=== PATIENT | female | born 1975 | race Two or more races ===

== ENCOUNTER 2018-01-01 10:21 | Outpatient (CLI) | payer OTHER ==
[~2018-01-01 10:21] MED LIST: ALEVE220 M1 PO; ASA-EC81 MG PO; COUMADIN5 MG PO; XARELTO20 MG; XARELTO20 MG PO
== END 2018-01-01 10:35 | disposition home or self-care (01) ==
LOC: SONOGRAMA 10:21
DX: E04.1 Nontoxic single thyroid nodule (principal)

== ENCOUNTER 2018-01-07 09:09 | Outpatient (CLI) | payer OTHER | END 2018-01-07 09:23 | disposition home or self-care (01) | LOC: LAB 09:09 | DX: R19.5 Other fecal abnormalities (principal); E78.2 Mixed hyperlipidemia; R63.5 Abnormal weight gain; E16.2 Hypoglycemia, unspecified; E88.9 Metabolic disorder, unspecified; R53.81 Other malaise; R43.0 Anosmia; R30.0 Dysuria; E55.9 Vitamin D deficiency, unspecified; R80.8 Other proteinuria; Z12.11 Encounter for screening for malignant neoplasm of colon; E04.0 Nontoxic diffuse goiter ==

== ENCOUNTER 2018-01-07 09:35 | Outpatient (CLI) | payer OTHER | END 2018-01-07 09:52 | disposition home or self-care (01) | LOC: SONOGRAMA 09:35 | DX: R10.2 Pelvic and perineal pain (principal); R10.84 Generalized abdominal pain; K76.0 Fatty (change of) liver, not elsewhere classified ==

== ENCOUNTER 2018-01-08 08:56 | Outpatient (CLI) | payer OTHER | END 2018-01-08 09:15 | disposition home or self-care (01) | LOC: RAD 08:56 → TOM 10:15 | DX: R41.2 Retrograde amnesia (principal); R51 Headache; N60.11 Diffuse cystic mastopathy of right breast; N60.12 Diffuse cystic mastopathy of left breast; N60.02 Solitary cyst of left breast ==

== ENCOUNTER 2018-01-08 11:59 | Outpatient (CLI) | payer OTHER | END 2018-01-08 18:28 | disposition home or self-care (01) | LOC: NUCLEAR 11:59 | DX: I80.3 Phlebitis and thrombophlebitis of lower extremities, unspecified (principal) ==

== ENCOUNTER 2018-01-14 09:21 | Outpatient (CLI) | payer OTHER | END 2018-01-14 09:28 | disposition home or self-care (01) | LOC: RAD 09:21 | DX: J20.8 Acute bronchitis due to other specified organisms (principal) ==

== ENCOUNTER 2018-04-15 09:41 | Outpatient (CLI) | payer OTHER | END 2018-04-15 09:56 | disposition home or self-care (01) | LOC: LAB 09:41 | DX: D50.8 Other iron deficiency anemias (principal) ==

== ENCOUNTER 2018-09-22 10:01 | Outpatient (CLI) | payer OTHER | END 2018-09-22 10:10 | disposition home or self-care (01) | LOC: LAB 10:01 | DX: E78.2 Mixed hyperlipidemia (principal); R19.5 Other fecal abnormalities; R63.5 Abnormal weight gain; E88.89 Other specified metabolic disorders; R53.81 Other malaise; R43.0 Anosmia; R30.0 Dysuria; E55.9 Vitamin D deficiency, unspecified; D50.8 Other iron deficiency anemias; E04.0 Nontoxic diffuse goiter; E16.1 Other hypoglycemia ==

== ENCOUNTER 2018-09-23 15:40 | Emergency (ER) | payer OTHER ==
[~2018-09-23] VITALS: Ht 172.7 cm; Wt 104.3 kg
== END 2018-09-24 16:07 | disposition home or self-care (01) ==
LOC: ER 15:40
DX: D64.9 Anemia, unspecified (principal); N93.8 Other specified abnormal uterine and vaginal bleeding; D51.8 Other vitamin B12 deficiency anemias; Z98.84 Bariatric surgery status; Z98.890 Other specified postprocedural states; D50.8 Other iron deficiency anemias
CPT/HCPCS: 93005; 36430 ×2; 86904 ×2; 86922 ×2; P9021 ×2

== ENCOUNTER 2018-12-01 12:33 | Emergency (ER) | payer OTHER ==
[~2018-12-01] VITALS: Ht 172.7 cm; Wt 104.3 kg
[2018-12-01] MEDS ORDERED: ADIPEX-P37.5 M1 (12:42)
== END 2018-12-01 17:26 | disposition home or self-care (01) ==
LOC: ER 12:33
DX: R20.0 Anesthesia of skin (principal)

== ENCOUNTER 2019-06-26 14:45 | Inpatient (IN) | payer OTHER ==
[~2019-06-26] VITALS: Ht 172.7 cm; Wt 99.8 kg
[~2019-06-26 14:45] MED LIST changes: +ADIPEX-P37.5 M1
--- NOTE | 2019-06-26 15:27 | NUR ---
PACIENTE FEMINA ALERTA Y ORIENTADA CON SANGRADO VAGINAL ACTIVO DESDE HACE UN AC. EL MISMO WOMACK ESTADO PREVIAMENTE EN EL HOSPITAL Y LA [facility] TENIDO QUE TRANSFUNFIR EN 4 OCACIONES. ACTUALMENTE ESTA EN RODRIGUEZ PERIODO MESTRUAL Y ES PACIENTE ANEMICO.
--- NOTE | 2019-06-26 17:09 | NUR ---
PTE ES EVALUADA POR DR. GUYA QUIEN ORDENA TRATAMIENTO. SE EDUCA A PTE SOBRE ORDENES MEDICAS Y REFIERE COMPRENDER. SE CANALIZA Y SE COLECTAN MUESTRAS DE LABORATORIO BAJO MEDIDAS ASEPTICAS Y SE MANTIENE CON IV FLUIDS.
--- NOTE | 2019-06-26 23:19 | NUR ---
SE RECIBE PACIENTE EN CAMA CON MEDIDAS DE SEGURIDAD LUCE ALERTA CONSCIENTE Y ORIENTADA X3 EN COMPANIA DE FAMILIAR. BUEN PATRON RESPIRATORIO. IV. PATENTE AREA JAZMIN DE EDEMA Y ENROJECIMIENTO. PTE REFIERE YA NO TENER UN SANGRADO PROFUSO VAGINAL. PTE EN ESPERA DE SER RE EVLAUADA POR EL DR. FRIEDMAN EN LA MANANA.
--- NOTE | 2019-06-27 07:28 | NUR ---
SE RECIBE PT ALERTA Y ORIENTADA EN TIEMPO LUGAR Y PERSONA, EN CAMA CON BARANDAS ELEVADAS Y TIMBRE ACCESIBLE. PT RECIBIENDO 0.9NSS BAJANDO A 150ML/HR. AL MOMENTO PENDIENTE DE SER EVALUADA POR DR FRIEDMAN.SE MANTIENE CON 2 U PRBC EN HOLD.
--- NOTE | 2019-06-27 09:44 | NUR ---
SE ASISTE A DR FRIEDMAN EN EXAMEN VAGINAL.
== END 2019-06-28 12:33 | DRG 812 ==
LOC: ER 14:45 → OB/GYN 06-27 10:05
PROVIDERS: ADMIT Obstetrics & Gynecology
PROC: 30233N1 Transfusion of Nonautologous Red Blood Cells into Peripheral Vein, Percutaneous Approach (ICD-10-PCS; principal; 2019-06-27)
DX: D50.0 Iron deficiency anemia secondary to blood loss (chronic) (principal); E72.12 Methylenetetrahydrofolate reductase deficiency; D68.61 Antiphospholipid syndrome; N93.8 Other specified abnormal uterine and vaginal bleeding; Z98.84 Bariatric surgery status; Z95.828 Presence of other vascular implants and grafts; D25.1 Intramural leiomyoma of uterus

== ENCOUNTER 2020-02-06 10:29 | Emergency (ER) | payer OTHER ==
[~2020-02-06] VITALS: Ht 172.7 cm; Wt 104.3 kg
[2020-02-06] MEDS ORDERED: XARELTO20 MG (11:04)
== END 2020-02-06 14:09 | disposition home or self-care (01) ==
LOC: ER 10:29
DX: M62.830 Muscle spasm of back (principal)

== ENCOUNTER 2020-02-07 12:28 | Outpatient (CLI) | payer OTHER | END 2020-02-07 12:35 | disposition home or self-care (01) | LOC: LAB 12:28 | PROVIDERS: ATTEND Internal Medicine Hematology & Oncology | DX: D50.8 Other iron deficiency anemias (principal); I10 Essential (primary) hypertension; E72.11 Homocystinuria; E72.12 Methylenetetrahydrofolate reductase deficiency; I80.222 Phlebitis and thrombophlebitis of left popliteal vein; D51.1 Vitamin B12 deficiency anemia due to selective vitamin B12 malabsorption with proteinuria; D50.0 Iron deficiency anemia secondary to blood loss (chronic); Z98.84 Bariatric surgery status ==

== ENCOUNTER 2020-02-15 09:53 | Outpatient (CLI) | payer OTHER | END 2020-02-15 10:19 | disposition home or self-care (01) | LOC: NUCLEAR 09:53 | PROVIDERS: ATTEND Internal Medicine Hematology & Oncology | DX: I80.222 Phlebitis and thrombophlebitis of left popliteal vein (principal) ==

== ENCOUNTER 2020-02-15 12:43 | Outpatient (CLI) | payer OTHER | END 2020-02-15 12:46 | disposition home or self-care (01) | LOC: MAMO-SONO 12:43 | PROVIDERS: ATTEND Internal Medicine Hematology & Oncology | DX: Z12.31 Encounter for screening mammogram for malignant neoplasm of breast (principal); N63.10 Unspecified lump in the right breast, unspecified quadrant; N63.20 Unspecified lump in the left breast, unspecified quadrant; E72.12 Methylenetetrahydrofolate reductase deficiency; D68.59 Other primary thrombophilia; I80.222 Phlebitis and thrombophlebitis of left popliteal vein; D51.1 Vitamin B12 deficiency anemia due to selective vitamin B12 malabsorption with proteinuria; D50.0 Iron deficiency anemia secondary to blood loss (chronic); D50.8 Other iron deficiency anemias; Z98.84 Bariatric surgery status; E04.2 Nontoxic multinodular goiter ==

== ENCOUNTER 2021-09-03 09:21 | Inpatient (IN) | payer OTHER ==
[~2021-09-03] VITALS: Ht 172.7 cm; Wt 104.3 kg
[2021-09-03] MEDS ORDERED: FUSION PLUS CA1 EACH PO (09:47)
[2021-09-04] MEDS ORDERED: FOLIC ACID1 MG (08:23)
== END 2021-09-07 14:36 | disposition home or self-care (01) | DRG 812 ==
LOC: ER 09:21 → OB/GYN 20:45
PROVIDERS: ADMIT Obstetrics & Gynecology; ATTEND Obstetrics & Gynecology
PROC: 30233N1 Transfusion of Nonautologous Red Blood Cells into Peripheral Vein, Percutaneous Approach (ICD-10-PCS; principal; 2021-09-03)
PROC: BU4CZZZ Ultrasonography of Uterus and Ovaries (ICD-10-PCS; 2021-09-03)
DX: D50.0 Iron deficiency anemia secondary to blood loss (chronic) (principal); Z20.822 Contact with and (suspected) exposure to COVID-19; Z98.84 Bariatric surgery status; Z90.49 Acquired absence of other specified parts of digestive tract; Z86.718 Personal history of other venous thrombosis and embolism; N93.8 Other specified abnormal uterine and vaginal bleeding

== ENCOUNTER 2021-09-08 23:27 | Inpatient (IN) | payer OTHER ==
[~2021-09-08] VITALS: Ht 172.7 cm; Wt 108.0 kg
[~2021-09-08 23:27] MED LIST changes: +FOLIC ACID1 MG; +FUSION PLUS CA1 EACH PO
--- NOTE | 2021-09-08 23:41 | NUR ---
PACIENTE ALERTA Y ORIENTADA REFIERE QUE ESTUBO RECLUIDA AQUI POR 8 BENDER POR ANEMIA, REFIERE QUE FUE POLY DE KAMERON EL VIERNES CONM HEMOGLOBINA EN 7.3, PACIENTE REFIERE QUE SIGUE CON SANGRADO Y MAREOS. SE MONITOREAN S/V Y SE UBICA EN OBSERVACION.
--- NOTE | 2021-09-09 01:01 | NUR ---
SE ORIENTA AL PACIENTE SOBRE EL TX. SE EXTRAEN MUESTRAS DE LEWIS BAJO MEDIDAS ASEPTICAS SE ROTULAN Y ENVIAN AL LABORATORIO. SE CANALIZA Y COLOCA 2 H/L. SE IRENE PERMISO PARA TRANSFUNDIR Y SE ALOK PILOTOS PARA 2 UNIDADES DE PRBC. SE LLAMA A BANCO DE [employer]IC[employer]OS [employer] Y SE NOTIFICA.
--- NOTE | 2021-09-09 08:25 | NUR ---
SE EVALUA PTEPOR EL SANG LARA EN AREA DE OBGYN LA CUAL SE OBSERVA SANGRADO PROFUSO. LA PTE SE ADMITIRA BAJO LOS SERVICIO DEL DEWAYNE LARA . SE MANTIENE BAJO OBSERVACION.
--- NOTE | 2021-09-09 08:45 | NUR ---
8:40AM: SE HABLA CON MS MOON Y SE LE INDICA QUE SE GALINA EN BANCO DE LEWIS LA LA REQUISICION DE LAS PLAQUETAS.
== END 2021-09-13 15:35 | disposition home or self-care (01) | DRG 811 ==
LOC: ER 23:27 → MEDJ 09-09 07:50 → OB/GYN 09-09 07:50 → MEDJ 09-09 11:14
PROVIDERS: ADMIT Obstetrics & Gynecology; ATTEND Obstetrics & Gynecology
PROC: 30233N1 Transfusion of Nonautologous Red Blood Cells into Peripheral Vein, Percutaneous Approach (ICD-10-PCS; principal; 2021-09-09)
PROC: 30233R1 Transfusion of Nonautologous Platelets into Peripheral Vein, Percutaneous Approach (ICD-10-PCS; 2021-09-09)
PROC: BU4CZZZ Ultrasonography of Uterus and Ovaries (ICD-10-PCS; 2021-09-09)
PROC: 079T3ZX Drainage of Bone Marrow, Percutaneous Approach, Diagnostic (ICD-10-PCS; 2021-09-12)
PROC: 07DR0ZX Extraction of Iliac Bone Marrow, Open Approach, Diagnostic (ICD-10-PCS; 2021-09-12)
DX: D50.0 Iron deficiency anemia secondary to blood loss (chronic) (principal); U07.1 COVID-19; D68.61 Antiphospholipid syndrome; E72.12 Methylenetetrahydrofolate reductase deficiency; D69.49 Other primary thrombocytopenia; Z86.718 Personal history of other venous thrombosis and embolism

== ENCOUNTER 2021-11-06 11:40 | Outpatient (CLI) | payer OTHER | END 2021-11-06 11:42 | disposition home or self-care (01) | LOC: LAB 11:40 | DX: Z01.812 Encounter for preprocedural laboratory examination (principal) ==

== ENCOUNTER 2021-11-14 12:52 | Outpatient (CLI) | payer OTHER | END 2021-11-14 13:03 | disposition home or self-care (01) | LOC: MAMO-SONO 12:52 | PROVIDERS: ATTEND Internal Medicine | DX: E04.1 Nontoxic single thyroid nodule (principal); N60.11 Diffuse cystic mastopathy of right breast; N60.12 Diffuse cystic mastopathy of left breast ==

== ENCOUNTER 2022-07-10 10:44 | Outpatient (CLI) | payer OTHER | END 2022-07-10 10:59 | disposition home or self-care (01) | LOC: NUCLEAR 10:44 | PROVIDERS: ATTEND Internal Medicine Hematology & Oncology | DX: I87.2 Venous insufficiency (chronic) (peripheral) (principal); Z86.718 Personal history of other venous thrombosis and embolism ==

== ENCOUNTER 2022-07-16 09:29 | Outpatient (CLI) | payer OTHER | END 2022-07-16 10:02 | disposition home or self-care (01) | LOC: SONOGRAMA 09:29 | PROVIDERS: ATTEND Internal Medicine Hematology & Oncology | DX: N93.9 Abnormal uterine and vaginal bleeding, unspecified (principal) ==

== ENCOUNTER 2022-10-01 09:56 | Outpatient (CLI) | payer OTHER | END 2022-10-01 10:03 | disposition home or self-care (01) | LOC: RAD 09:56 | PROVIDERS: ATTEND Obstetrics & Gynecology Gynecology | DX: I10 Essential (primary) hypertension (principal) ==

== ENCOUNTER 2022-10-15 12:46 | Inpatient (IN) | payer OTHER ==
[~2022-10-15] VITALS: Ht 172.7 cm; Wt 121.6 kg
[2022-10-22] MEDS ORDERED: ESCITALOPRAM OX10 MG (08:17)
[2022-10-23] MEDS ORDERED: ACETAMINOPHEN-1 EAC2 PO (07:09)
[2022-10-23] MEDS ORDERED: LOVENOX40 MG/0.4 SUBCUTANEO (07:10)
== END 2022-10-23 09:16 | disposition home or self-care (01) | DRG 742 ==
LOC: SURH 10-21 07:00 → O/R 10-21 11:43 → SURH 10-21 15:45 → OB/GYN 10-21 18:18
PROVIDERS: ADMIT Obstetrics & Gynecology Gynecology; ATTEND Obstetrics & Gynecology Gynecology
PROC: 0UT70ZZ Resection of Bilateral Fallopian Tubes, Open Approach (ICD-10-PCS; 2022-10-21)
PROC: 0UT90ZZ Resection of Uterus, Open Approach (ICD-10-PCS; principal; 2022-10-21 15:45)
DX: D25.1 Intramural leiomyoma of uterus (principal); E72.11 Homocystinuria; E72.12 Methylenetetrahydrofolate reductase deficiency; D25.2 Subserosal leiomyoma of uterus; N80.03 Adenomyosis of the uterus; Z20.822 Contact with and (suspected) exposure to COVID-19; D69.6 Thrombocytopenia, unspecified

== ENCOUNTER 2023-07-23 15:26 | Outpatient (CLI) | payer OTHER ==
[~2023-07-23 15:26] MED LIST changes: +ACETAMINOPHEN-1 EAC2 PO; +ESCITALOPRAM OX10 MG; +LOVENOX40 MG/0.4 SUBCUTANEO
== END 2023-07-23 15:35 | disposition home or self-care (01) ==
LOC: RAD 15:26
PROVIDERS: ATTEND Internal Medicine
DX: E04.1 Nontoxic single thyroid nodule (principal)
CPT/HCPCS: 70552

== ENCOUNTER 2024-07-30 13:58 | Outpatient (CLI) | payer OTHER | END 2024-07-30 14:03 | disposition home or self-care (01) | LOC: MAMO-SONO 13:58 | PROVIDERS: ATTEND Internal Medicine | DX: N60.11 Diffuse cystic mastopathy of right breast (principal); N60.12 Diffuse cystic mastopathy of left breast; E04.0 Nontoxic diffuse goiter ==

== ENCOUNTER 2024-08-12 09:58 | Outpatient (CLI) | payer OTHER | END 2024-08-12 09:59 | disposition home or self-care (01) | LOC: NUCLEAR 09:58 | PROVIDERS: ATTEND Internal Medicine | DX: I70.213 Atherosclerosis of native arteries of extremities with intermittent claudication, bilateral legs (principal); R60.9 Edema, unspecified; M79.606 Pain in leg, unspecified ==

== ENCOUNTER 2024-08-17 10:06 | Outpatient (CLI) | payer OTHER | END 2024-08-17 10:07 | disposition home or self-care (01) | LOC: NUCLEAR 10:06 | PROVIDERS: ATTEND Internal Medicine | DX: R60.9 Edema, unspecified (principal); M79.606 Pain in leg, unspecified; I70.213 Atherosclerosis of native arteries of extremities with intermittent claudication, bilateral legs ==

== ENCOUNTER 2024-11-11 10:55 | Outpatient (CLI) | payer OTHER | END 2024-11-11 10:58 | disposition home or self-care (01) | LOC: SONOGRAMA 10:55 | PROVIDERS: ATTEND Pathology Anatomic Pathology | DX: D34 Benign neoplasm of thyroid gland (principal); E07.89 Other specified disorders of thyroid; E04.1 Nontoxic single thyroid nodule ==